=== PATIENT | female | born 1995 | race Caucasian/White ===

== ENCOUNTER 2018-05-05 17:16 | Emergency (ER) | payer OTHER ==
--- NOTE | 2018-05-05 17:52 | ERPHSYRPT ---
- History of Present Illness Time Seen by Provider: 05/05/18 17:39 Source: patient Exam Limitations: no limitations Patient Subjective Stated Complaint: PT HERE FOR SYNCOPAL EPISODE, TODAY AT WORK ,, SHE STATES SHE ASLO VOMITED A COUPLE TIMES TODAY. NO OTHER SYPTOMS Triage Nursing Assessment: PT ALERT, BUT SLEEPY. RESP EASY, SKIN W/D/P, BS WAS 93 Physician History: This is a 22-year-old white female she arrives with complaint of syncopal episode just prior to work. Patient also stated that she had vomited several times earlier today also one time after syncopal episode. Patient states she is nauseous. Past medical history includes diabetes past surgical history is negative Last menstrual period 5 days ago Social history positive for tobacco use patient denies alcohol or illicit drug use. . Timing/Duration: today (just prior to arrival) Severity: moderate Modifying Factors: Improves With: other (patient was closing window) Associated Symptoms: nausea, vomiting, syncope, No abdominal pain, No shortness of breath, No heartburn, No diaphoresis, No cough, No chills, No chest pain, No fever, No headaches, No loss of appetite, No malaise, No rash, No seizure, No weakness Allergies/Adverse Reactions: No Known Drug Allergies Allergy (Verified 09/09/16 09:31) Hx Tetanus, Diphtheria Vaccination/Date Given: No Hx Influenza Vaccination/Date Given: No Hx Pneumococcal Vaccination/Date Given: No Immunizations Up to Date: Yes - Review of Systems Constitutional: No Fever, No Chills Eyes: No Symptoms Ears, Nose, & Throat: No Symptoms, Ear Pain Respiratory: No Cough, No Dyspnea Cardiac: Syncope, No Chest Pain, No Edema Abdominal/Gastrointestinal: Nausea, Vomiting, No Abdominal Pain, No Diarrhea, No Constipation, No Hematemesis, No Hematochezia, No Melena, No Dysphagia, No Appetite Changes Genitourinary Symptoms: No Dysuria Musculoskeletal: No Symptoms Skin: No Rash Neurological: No Dizziness, No Focal Weakness, No Sensory Changes Psychological: No Symptoms Endocrine: No Symptoms All Other Systems: Reviewed and Negative - Past Medical History Pertinent Past Medical History: Yes Endocrine Medical History: Diabetes Type II - Past Surgical History Past Surgical History: No - Social History Smoking Status: Current every day smoker How long have you smoked: 2 Exposure to second hand smoke: Yes Drug Use: none Patient Lives Alone: No - Female History Hx Last Menstrual Period: 5 DAYS AGO Hx Now: No - Nursing Vital Signs Nursing Vital Signs: Initial Vital Signs Pulse Rate 70 05/05/18 18:22 Respiratory Rate 14 05/05/18 18:22 Blood Pressure 116/67 05/05/18 18:22 O2 Sat by Pulse Oximetry 98 05/05/18 18:22 Pain Scale Pain Intensity 0 - Physical Exam General Appearance: mild distress Eye Exam: PERRL/EOMI, eyes nml inspection Ears, Nose, Throat Exam: normal ENT inspection, TMs normal, pharynx normal, moist mucous membranes Neck Exam: normal inspection Respiratory Exam: normal breath sounds, lungs clear, No respiratory distress Cardiovascular Exam: regular rate/rhythm, normal heart sounds, normal peripheral pulses Gastrointestinal/Abdomen Exam: soft, normal bowel sounds, No tenderness, No mass Back Exam: normal inspection, normal range of motion, No CVA tenderness, No vertebral tenderness Extremity Exam: normal inspection, normal range of motion, pelvis stable Neurologic Exam: alert, oriented x 3, cooperative, 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, normal mood/affect, nml cerebellar function, nml station & gait, sensation nml, No motor deficits Skin Exam: normal color, warm, dry, No rash Lymphatic Exam: No adenopathy SpO2 Interpretation: normal Ordered Tests: Active Orders 24 hr Category Date Time Status Accucheck STAT Care 05/05/18 17:46 Active EKG-ER Only STAT Care 05/05/18 17:46 Active IV Insertion STAT Care 05/05/18 17:46 Active Orthostatic Vital Signs STAT Care 05/05/18 19:24 Active CBC W DIFF Stat Lab 05/05/18 17:55 Completed CMP Stat Lab 05/05/18 17:55 Completed HCG QUALITATIVE,SERUM Stat Lab 05/05/18 17:55 Completed UA W/ MICROSCOPIC Stat Lab 05/05/18 19:37 Completed Medication Summary Discontinued Medications Generic Name Dose Route Start Last Admin Trade Name Freq PRN Reason Stop Dose Admin Sodium Chloride 1,000 mls @ 999 mls/hr 05/05/18 17:46 05/05/18 19:45 Sodium Chloride 0.9% 1000 Ml IV 05/05/18 18:46 Infused .Q1H1M STA Infusion Sodium Chloride Confirm 05/05/18 18:35 Sodium Chloride 0.9% 1000 Ml Administered 05/05/18 18:36 Dose 1,000 mls @ ud .ROUTE .STK-MED ONE Ondansetron HCl 4 mg 05/05/18 17:48 05/05/18 18:36 Zofran 4 Mg/2 Ml Vial IV 05/05/18 17:49 4 mg STAT ONE Administration Ondansetron HCl Confirm 05/05/18 18:34 Zofran 4 Mg/2 Ml Vial Administered 05/05/18 18:35 Dose 4 mg .ROUTE .STK-MED ONE Lab/Rad Data: Laboratory Result Diagrams 05/05/18 17:55 05/05/18 17:55 Laboratory Results 05/05/18 05/05/18 05/05/18 Range/Units 19:37 17:55 17:55 WBC (4.0-10.5) K/mm3 RBC (4.1-5.4) M/mm3 Hgb (12.0-16.0) gm/dl Hct (35-47) % MCV (78-100) fl MCH (26-32) pg MCHC (32-36) g/dl RDW (11.5-14.0) % Plt Count (150-450) K/mm3 MPV (6-9.5) fl Gran % (36.0-66.0) % Eos # (Auto) (0-0.5) Absolute Lymphs (auto) (1.0-4.6) Absolute Monos (auto) (0.0-1.3) Lymphocytes % (24.0-44.0) % Monocytes % (0.0-12.0) % Eosinophils % (0.00-5.0) % Basophils % (0.0-0.4) % Absolute Granulocytes (1.4-6.9) Basophils # (0-0.4) Sodium 143 (137-145) mmol/L Potassium 4.2 (3.5-5.1) mmol/L Chloride 106 (98-107) mmol/L Carbon Dioxide 25 (22-30) mmol/L Anion Gap 15.8 H (5-15) MEQ/L BUN 13 (7-17) mg/dL Creatinine 0.83 (0.52-1.04) mg/dL Estimated GFR > 60.0 ML/MIN Glucose 88 (74-106) mg/dL Calcium 9.8 (8.4-10.2) mg/dL Total Bilirubin 0.20 (0.2-1.3) mg/dL AST 18 (14-36) U/L ALT 21 (0-35) U/L Alkaline Phosphatase 118 (38-126) U/L Serum Total Protein 8.0 (6.3-8.2) g/dL Albumin 4.9 (3.5-5.0) g/dL Serum , Qual NEGATIVE (Negative) Ur Collection Type VOID Urine Color YELLOW (YELLOW) Urine Appearance HAZY (CLEAR) Urine pH 5.0 (5-6) Ur Specific [place] 1.025 (1.005-1.025) Urine Protein NEGATIVE (Negative) Urine Ketones NEGATIVE (NEGATIVE) Urine Blood 50 (0-5) Hermann/ul Urine Nitrite NEGATIVE (NEGATIVE) Urine Bilirubin NEGATIVE (NEGATIVE) Urine Urobilinogen NORMAL (0-1) mg/dL Ur Leukocyte Esterase NEGATIVE (NEGATIVE) Urine Microscopic RBC 5-10 (0-2) /HPF Ur Epithelial Cells FEW (FEW) /HPF Urine Bacteria FEW (NEGATIVE) /HPF Urine Culture Reflexed NO (NO) Urine Glucose NEGATIVE (NEGATIVE) mg/dL Specimen Received 05/05 201505/05/18 Range/Units 17:55 WBC 14.5 H (4.0-10.5) K/mm3 RBC 5.21 (4.1-5.4) M/mm3 Hgb 15.8 (12.0-16.0) gm/dl Hct 46.8 (35-47) % MCV 89.8 (78-100) fl MCH 30.3 (26-32) pg MCHC 33.8 (32-36) g/dl RDW 13.7 (11.5-14.0) % Plt Count 358 (150-450) K/mm3 MPV 10.7 H (6-9.5) fl Gran % 66.9 H (36.0-66.0) % Eos # (Auto) 0.39 (0-0.5) Absolute Lymphs (auto) 3.28 (1.0-4.6) Absolute Monos (auto) 1.05 (0.0-1.3) Lymphocytes % 22.7 L (24.0-44.0) % Monocytes % 7.3 (0.0-12.0) % Eosinophils % 2.7 (0.00-5.0) % Basophils % 0.4 (0.0-0.4) % Absolute Granulocytes 9.69 H (1.4-6.9) Basophils # 0.06 (0-0.4) Sodium (137-145) mmol/L Potassium (3.5-5.1) mmol/L Chloride (98-107) mmol/L Carbon Dioxide (22-30) mmol/L Anion Gap (5-15) MEQ/L BUN (7-17) mg/dL Creatinine (0.52-1.04) mg/dL Estimated GFR ML/MIN Glucose (74-106) mg/dL Calcium (8.4-10.2) mg/dL Total Bilirubin (0.2-1.3) mg/dL AST (14-36) U/L ALT (0-35) U/L Alkaline Phosphatase (38-126) U/L Serum Total Protein (6.3-8.2) g/dL Albumin (3.5-5.0) g/dL Serum , Qual (Negative) Ur Collection Type Urine Color (YELLOW) Urine Appearance (CLEAR) Urine pH (5-6) Ur Specific [place] (1.005-1.025) Urine Protein (Negative) Urine Ketones (NEGATIVE) Urine Blood (0-5) Hermann/ul Urine Nitrite (NEGATIVE) Urine Bilirubin (NEGATIVE) Urine Urobilinogen (0-1) mg/dL Ur Leukocyte Esterase (NEGATIVE) Urine Microscopic RBC (0-2) /HPF Ur Epithelial Cells (FEW) /HPF Urine Bacteria (NEGATIVE) /HPF Urine Culture Reflexed (NO) Urine Glucose (NEGATIVE) mg/dL Specimen Received - Progress Progress: improved Progress Note: 05/05/18 20:42 22-year-old white female arrives with complaint of syncopal episode at work she states she has vomited several times today. Patient is feeling markedly improved after normal saline 1 L patient was EKG normal sinus rhythm [address] or T wave changes normal EKG. Patient's CBC with mild elevated wbc. otherwise normal. hCG chemistry are normal urinalysis essentially normal. Will discharge patient 05/05/18 20:52 - Departure Time of Disposition: 20:43 Departure Disposition: Home Clinical Impression: Vasovagal syncope Vomiting Qualifiers: Vomiting type: unspecified Vomiting Intractability: non-intractable Nausea presence: with nausea Qualified Code(s): R11.2 - Nausea with vomiting, unspecified Condition: Fair Critical Care Time: No Referrals: MALI RESTREPO [Primary Care Provider] - Instructions: Syncope (Fainting) (DC) Additional Instructions: Return home. Plenty of fluids. Zofran 4 mg orally every 6 hours as needed for nausea and vomiting Follow-up with your family doctor. Return for acute distress or for severe symptoms. Prescriptions: Ondansetron ODT 4 MG [Zofran Odt 4 mg] 4 mg PO Q6H PRN PRN #10 tab.rapdis PRN Reason: nausea or vomiting
[2018-05-05 18:03] LABS: BASOPHIL % 0.4 % (0.0-0.4); Basophil (Absolute #) 0.06 (0-0.4); Eosinophil % 2.7 % (0.00-5.0); Eosinophil (Absolute #) 0.39 (0-0.5); Granulocyte Absolute (ANC) 9.69 (1.4-6.9); Granulocytes % 66.9 % (36.0-66.0); Hematocrit 46.8 % (35-47); Hemoglobin 15.8 gm/dl (12.0-16.0); Lymphocyte (Absolute #) 3.28 (1.0-4.6); Lymphocytes % 22.7 % (24.0-44.0); Mean Cell Volume 89.8 fl (78-100); Mean Corpuscular Hemoglobin 30.3 pg (26-32); Mean Corpuscular Hgb Concent. 33.8 g/dl (32-36); Mean Platelet Volume 10.7 fl (6-9.5); Monocyte (Absolute #) 1.05 (0.0-1.3); Monocytes % 7.3 % (0.0-12.0); Platelet Count 358 K/mm3 (150-450); Red Blood Count 5.21 M/mm3 (4.1-5.4); Red Cell Distribution Width 13.7 % (11.5-14.0); White Blood Count 14.5 K/mm3 (4.0-10.5)
[2018-05-05 18:19] LABS: ALBUMIN 4.9 g/dL (3.5-5.0); ALKALINE PHOSPHATASE 118 U/L (38-126); ANION GAP 15.8 MEQ/L (5-15); BLOOD UREA NITROGEN 13 mg/dL (7-17); CHLORIDE 106 mmol/L (98-107); Calcium 9.8 mg/dL (8.4-10.2); Carbon Dioxide 25 mmol/L (22-30); Creatinine 1 0.83 mg/dL (0.52-1.04); Glucose 88 mg/dL (74-106); Potassium 4.2 mmol/L (3.5-5.1); SGOT/AST 18 U/L (14-36); SGPT/ALT 21 U/L (0-35); SODIUM 143 mmol/L (137-145)
[2018-05-05] MEDS ORDERED: Zofran 4 MG/2 ML VIAL ONE (18:34)
[2018-05-05] MEDS: Sodium Chloride 0.9% 1000 ML 1,000 ML IV STA (18:35)
[2018-05-05] MEDS ORDERED: Sodium Chloride 0.9% 1000 ML 1,000 ML ONE (18:35)
[2018-05-05] MEDS: Zofran 4 MG/2 ML VIAL IV ONE (18:36)
[2018-05-05 19:37] VITALS: BP 116/65
[2018-05-05 19:55] VITALS: PULSE 80; O2SAT 97
[2018-05-05 20:37] LABS: Appearance HAZY (CLEAR)
[2018-05-05 20:38] LABS: Bacteria FEW /HPF (NEGATIVE); Bilirubin NEGATIVE (NEGATIVE); Blood 50 Ery/ul (0-5); Epithelial Cells FEW /HPF (FEW); Glucose NEGATIVE (NEGATIVE); Ketones NEGATIVE (NEGATIVE); Leukocyte Esterase NEGATIVE (NEGATIVE); Nitrite NEGATIVE (NEGATIVE); Protein,Urine Dip NEGATIVE (Negative); Specific Gravity 1.025 (1.005-1.025); Urobilinogen NORMAL mg/dL (0-1)
== END 2018-05-05 21:21 | disposition home or self-care (01) ==
LOC: ED 17:16
DX: R55 Syncope and collapse (principal); E11.9 Type 2 diabetes mellitus without complications
CPT/HCPCS: 36000; 36415; 80053; 81000; 82962; 84703; 85025; 93005; 96360; 96374; 99284; J2405

== ENCOUNTER 2022-01-04 12:22 | Emergency (ER) | payer BC ==
--- NOTE | 2022-01-04 12:55 | ERPHSYRPT ---
- History of Present Illness Source: patient Exam Limitations: no limitations Patient Subjective Stated Complaint: Cramping in bottom area and pelvic area since yesterday and got worse throughout the night. Went to OB triage in [place] last PM but no ultrasound was done. Bleeding has increased today to bright red. Patient is 14 weeks . Stated she has a UTI based on UA from [place]. Triage Nursing Assessment: Patient to ED with complaints of cramping and vaginal bleeding. Physician History: 14wks preg wf w pelvic cramping/bleeding since last PM. Pt was told by Dr. Chatman to go to ER to get US, so pt went to [place] ER where she was diagnosed w a UTI but did not get an US. Pt. did not get her antibiotic filled yet. She denies N/V/dysuria/fever. Timing/Duration: yesterday Activites at Onset: none Quality: cramping Onset Location: suprapubic Pain Radiation: none Severity of Pain-Max: mild Severity of Pain-Current: mild Prior abdominal problems: none Modifying Factors: Improves With: nothing Associated Symptoms: abdominal pain, , No fever, No chills, No diaphoresis, No nausea, No vomiting, No dysuria, No nocturia, No polyuria, No urinary frequency, No loss of bladder control, No lower back pain, No lumps, No mass, No swelling, No syncope, No vaginal discharge, No vaginal fluid leakage Allergies/Adverse Reactions: No Known Drug Allergies Allergy (Verified 01/04/22 12:36) Hx Tetanus, Diphtheria Vaccination/Date Given: Yes Hx Influenza Vaccination/Date Given: No Hx Pneumococcal Vaccination/Date Given: No Travel Risk - International Travel Have you traveled outside of the country in past 3 weeks: No - Coronavirus Screening Are you exhibiting any of the following symptoms?: No Close contact with a COVID-19 positive Pt in past 14-21 Days: No - Vaccine Status Have you recieved a Covid-19 vaccination: No - Review of Systems Constitutional: No Symptoms Eyes: No Symptoms Ears, Nose, & Throat: No Symptoms Respiratory: No Symptoms Cardiac: No Symptoms Abdominal/Gastrointestinal: No Symptoms Genitourinary Symptoms: Vaginal Bleeding Musculoskeletal: No Symptoms Skin: No Symptoms Neurological: No Symptoms Psychological: No Symptoms Endocrine: No Symptoms Hematologic/Lymphatic: No Symptoms Immunological/Allergic: No Symptoms - Past Medical History Pertinent Past Medical History: Yes Endocrine Medical History: Diabetes Type II - Past Surgical History Past Surgical History: No - Social History Smoking Status: Never smoker How long have you smoked: 2 Exposure to second hand smoke: No Drug Use: none Patient Lives Alone: No Significant Family History: no pertinent family hx - Female History Hx Last Menstrual Period: 09/28/21 Hx Now: Yes Expected Date of Delivery: 07/04/22 Gestational Age: 14 weeks - Nursing Vital Signs Nursing Vital Signs: Initial Vital Signs Temperature 98.5 F 01/04/22 12:26 Pulse Rate 95 H 01/04/22 12:26 Respiratory Rate 20 01/04/22 12:26 Blood Pressure 131/80 01/04/22 12:26 O2 Sat by Pulse Oximetry 99 01/04/22 12:26 Pain Scale Pain Intensity 0 WNL - Physical Exam General Appearance: no apparent distress Eye Exam: PERRL/EOMI, eyes nml inspection Ears, Nose, Throat Exam: normal ENT inspection, TMs normal, pharynx normal, moist mucous membranes Neck Exam: normal inspection, non-tender, supple, full range of motion, No meningismus, No mass, No Brudzinski, No Kernig's, No carotid bruit Respiratory Exam: normal breath sounds, lungs clear, airway intact Cardiovascular Exam: regular rate/rhythm, normal heart sounds, normal peripheral pulses, No murmur Gastrointestinal/Abdomen Exam: soft, normal bowel sounds, No tenderness Pelvic Exam: not done Back Exam: normal inspection, normal range of motion, No CVA tenderness, No v ertebral tenderness Extremity Exam: normal inspection, normal range of motion Neurologic Exam: alert, oriented x 3, cooperative, concrete pavement installer II-XII nml as tested, normal mood/affect, nml cerebellar function, nml station & gait, sensation nml, No motor deficits, No sensory deficit Skin Exam: normal color, warm, dry Lymphatic Exam: No adenopathy SpO2 Interpretation: normal SpO2: 99 O2 Delivery: Room Air - Course Nursing assessment & vital signs reviewed: Yes - Radiology Ultrasound Exam OB Ultrasound: Other (Per tech IUP/HR157/14wks 2days) Ordered Tests: Active Orders 24 hr Category Date Time Status OB >14 WKS 1st GESTATION [US] Stat Exams 01/04/22 14:45 Taken CBC W DIFF Stat Lab 01/04/22 13:00 Completed CULTURE,URINE Stat Lab 01/04/22 12:56 Received HCG, Quantitative (Inhouse) Stat Lab 01/04/22 15:17 Completed UA W/RFX CULTURE Stat Lab 01/04/22 12:56 Completed Medication Summary Discontinued Medications Generic Name Dose Route Start Last Admin Trade Name Syed PRN Reason Stop Dose Admin Ceftriaxone Sodium Confirm 01/04/22 15:08 Ceftriaxone Sodium 1000 Mg Inj Vial Administered 01/04/22 15:09 Dose 1,000 mg .ROUTE .STK-MED ONE Ceftriaxone Sodium 1,000 mg 01/04/22 15:09 01/04/22 15:11 Ceftriaxone Sodium 1000 Mg Inj Vial IM 01/04/22 15:10 1,000 mg STAT ONE Administration Ceftriaxone Sodium/Dextrose 1 g in 50 mls @ 100 mls/hr 01/04/22 14:55 01/04/22 15:09 Rocephin 1 Gm-D5w 50 Ml Bag IV 01/04/22 15:24 Not Given STAT STA Ceftriaxone Sodium/Dextrose Confirm 01/04/22 14:57 Rocephin 1 Gm-D5w 50 Ml Bag Administered 01/04/22 14:58 Dose 1 g in 50 mls @ ud IV .STK-MED ONE Lidocaine HCl Confirm 01/04/22 15:08 Lidocaine Hcl 1% 20 Ml Mdv 20 Ml Ml Administered 01/04/22 15:09 Dose 3 ml .ROUTE .STK-MED ONE Lab/Rad Data: Laboratory Result Diagrams 01/04/22 13:00 Laboratory Results 01/04/22 01/04/22 01/04/22 Range/Units 15:17 13:00 13:00 WBC 23.5 H (4.0-10.5) K/mm3 RBC 4.30 (4.1-5.4) M/mm3 Hgb 12.8 (12.0-16.0) gm/dl Hct 39.2 (35-47) % MCV 91.2 (78-100) fl MCH 29.8 (26-32) pg MCHC 32.7 (32-36) g/dl RDW 13.3 (11.5-14.0) % Plt Count 285 (150-450) K/mm3 MPV 11.9 H (7.5-11.0) fl Gran % 86.3 H (36.0-66.0) % Eos # (Auto) 0.09 (0-0.5) Absolute Lymphs (auto) 1.70 (1.0-4.6) Absolute Monos (auto) 1.36 H (0.0-1.3) Lymphocytes % 7.2 L (24.0-44.0) % Monocytes % 5.8 (0.0-12.0) % Eosinophils % 0.4 (0.00-5.0) % Basophils % 0.3 (0.0-0.4) % Absolute Granulocytes 20.29 H (1.4-6.9) Basophils # 0.06 (0-0.4) Beta HCG, Quant 04363 mIU/ml Urinalys Dipstick Clnc Urine Color (YELLOW) Urine Appearance (CLEAR) Urine pH (5-6) Ur Specific [place] (1.005-1.025) POC Urine Protein Conf (Negative) Urine Ketones (NEGATIVE) Urine Nitrite (NEGATIVE) Urine Bilirubin (NEGATIVE) Urine Urobilinogen (0-1) mg/dL Urine Leukocytes (NEGATIVE) Urine WBC (Auto) (0-5) /HPF Urine RBC (Auto) (0-2) /HPF U Hyaline Cast (Auto) (0-2) /LPF U Epithel Cells (Auto) (FEW) /HPF Urine Bacteria (Auto) (NEGATIVE) /HPF Urine RBC (0-5) Hermann/ul Urine Mucus (Auto) (NEGATIVE) /HPF Ur Culture Indicated? Urine Glucose (NEGATIVE) mg/dL Slides for Path Review YES Rh Factor POSITIVE 01/04/22 Range/Units 12:56 WBC (4.0-10.5) K/mm3 RBC (4.1-5.4) M/mm3 Hgb (12.0-16.0) gm/dl Hct (35-47) % MCV (78-100) fl MCH (26-32) pg MCHC (32-36) g/dl RDW (11.5-14.0) % Plt Count (150-450) K/mm3 MPV (7.5-11.0) fl Gran % (36.0-66.0) % Eos # (Auto) (0-0.5) Absolute Lymphs (auto) (1.0-4.6) Absolute Monos (auto) (0.0-1.3) Lymphocytes % (24.0-44.0) % Monocytes % (0.0-12.0) % Eosinophils % (0.00-5.0) % Basophils % (0.0-0.4) % Absolute Granulocytes (1.4-6.9) Basophils # (0-0.4) Beta HCG, Quant mIU/ml Urinalys Dipstick Clnc MAIN LAB Urine Color YELLOW (YELLOW) Urine Appearance HAZY (CLEAR) Urine pH 6.0 (5-6) Ur Specific [place] >=1.030 (1.005-1.025) POC Urine Protein Conf NEGATIVE (Negative) Urine Ketones NEGATIVE (NEGATIVE) Urine Nitrite NEGATIVE (NEGATIVE) Urine Bilirubin NEGATIVE (NEGATIVE) Urine Urobilinogen 0.2 (0-1) mg/dL Urine Leukocytes TRACE (NEGATIVE) Urine WBC (Auto) 16-25 (0-5) /HPF Urine RBC (Auto) 3-5 (0-2) /HPF U Hyaline Cast (Auto) 0-2 (0-2) /LPF U Epithel Cells (Auto) RARE (FEW) /HPF Urine Bacteria (Auto) RARE (NEGATIVE) /HPF Urine RBC MODERATE (0-5) Hermann/ul Urine Mucus (Auto) MODERATE (NEGATIVE) /HPF Ur Culture Indicated? YES Urine Glucose NEGATIVE (NEGATIVE) mg/dL Slides for Path Review Rh Factor - Progress Progress: improved Progress Note: 01/04/22 14:58 1gm IM Rocephin 01/04/22 15:[address] Chatman, wants bed rest/Vaginal rest/Will call pt in AM to set up w high safety risk lead 01/04/22 18:02 Counseled pt/family regarding: lab results, diagnosis, need for follow-up, rad results - Departure Departure Disposition: Home Clinical Impression: First trimester bleeding, UTI (urinary tract infection) Condition: Stable Critical Care Time: No Referrals: MALI ISBELL [Primary Care Provider] - Follow up/PCP as directed Instructions: Bleeding With (DC), Urinary Tract Infections in Additional Instructions: Fluids Start Macrobid twice a day Follow up with your Ob in the morning Return to ER for increasing pain or soaking through greater than 4 pads completely in 1 hour Prescriptions: Nitrofurantoin Monohyd/M-Cryst [Macrobid 100 mg Capsule] 100 mg PO BID 5 Days #10
[2022-01-04 13:28] LABS: Absolute Neutrophil Ct (ANC) 20.29 (1.4-6.9); Basophil (Absolute #) 0.06 (0-0.4); Eosinophil % 0.4 % (0.00-5.0); Eosinophil (Absolute #) 0.09 (0-0.5); Hematocrit 39.2 % (35-47); Hemoglobin 12.8 gm/dl (12.0-16.0); Lymphocytes % 7.2 % (24.0-44.0); Mean Cell Volume 91.2 fl (78-100); Mean Corpuscular Hemoglobin 29.8 pg (26-32); Mean Corpuscular Hgb Concent. 32.7 g/dl (32-36); Mean Platelet Volume 11.9 fl (7.5-11.0); Monocyte (Absolute #) 1.36 (0.0-1.3); Monocytes % 5.8 % (0.0-12.0); Neutrophil % 86.3 % (36.0-66.0); Platelet Count 285 K/mm3 (150-450); Red Cell Distribution Width 13.3 % (11.5-14.0); White Blood Count 23.5 K/mm3 (4.0-10.5)
[2022-01-04 13:55] LABS: Bacteria RARE /HPF (NEGATIVE); Epithelial Cells RARE /HPF (FEW); Hyaline Casts 0-2 /LPF (0-2); Mucus MODERATE /HPF (NEGATIVE)
[2022-01-04 13:57] LABS: Appearance HAZY (CLEAR); Bilirubin NEGATIVE (NEGATIVE); Dipstick done @ ? MAIN LAB; Glucose NEGATIVE (NEGATIVE); Ketones NEGATIVE (NEGATIVE); Nitrite NEGATIVE (NEGATIVE); Protein,Urine Dip NEGATIVE (Negative); RBC MODERATE Ery/ul (0-5); Specific Gravity >=1.030 (1.005-1.025); Urobilinogen 0.2 mg/dL (0-1)
[2022-01-04 13:58] LABS: Urine Cultured Indicated? YES
[2022-01-04] MEDS ORDERED: ROCEPHIN 1 Gm-D5w 50 ml Bag** 0 G/0 ML IVPB IV ONE (14:57)
[2022-01-04] MEDS ORDERED: XYLOCAINE 1% HCL 20 ML MDV ONE (15:08)
[2022-01-04] MEDS ORDERED: Rocephin 1000 MG INJ ONE (15:08)
[2022-01-04] MEDS: ROCEPHIN 1 Gm-D5w 50 ml Bag** 1 G/50 ML IVPB IV STA (15:09)
[2022-01-04] MEDS: Rocephin 1000 MG INJ IM ONE (15:11)
[2022-01-04 15:16] LABS: Slide Review 1 YES
[2022-01-04 15:20] VITALS: BP 94/64; PULSE 81
[2022-01-04 15:29] VITALS: O2SAT 99
--- NOTE | 2022-01-04 21:17 | XRAY ---
Indication: Bleeding and cramping. Two-dimensional OB ultrasound performed. Comparison: November 13, 2021. Again single viable intrauterine with mean composite gestational age 14 weeks 2 days. heart rate 171 BPM. Four-quadrant ARLEEN is 8.2 cm. Posterior placenta without retroplacental fluid. Cervix is closed with tiny sliver of fluid in the endocervix. Cervical length is 2.7 cm. Impression: Again single viable intrauterine measuring 14 weeks 2 days. Normal progression of . Tiny nonspecific fluid in the endocervix. No acute findings. Comment: Preliminary report was given.
== END 2022-01-04 15:35 | disposition home or self-care (01) ==
LOC: ED 12:22
DX: O20.9 Hemorrhage in early pregnancy, unspecified (principal); O23.42 Unspecified infection of urinary tract in pregnancy, second trimester; N39.0 Urinary tract infection, site not specified; Z3A.14 14 weeks gestation of pregnancy; R10.2 Pelvic and perineal pain; O24.112 Pre-existing type 2 diabetes mellitus, in pregnancy, second trimester; E11.9 Type 2 diabetes mellitus without complications
CPT/HCPCS: 36415; 76805; 81015; 84702; 85025; 86901; 87086; 96372; 99284; J0696

== ENCOUNTER 2025-07-14 17:52 | Emergency (ER) | payer BC ==
--- NOTE | 2025-07-14 18:11 | ERPHSYRPT ---
- History of Present Illness Time Seen by Provider: 07/14/25 18:08 Source: patient Exam Limitations: no limitations Physician History: 29-year-old female G2, reports she did IVF she reports this is her second but prior ended in miscarriage she is very anxious about this she reports she has had 1 ultrasound that showed a gestational sac but too early to show any heartbeat she is unsure as to her blood type she denies any trauma she reports some abdominal cramping and bleeding she reports she is having some spotting she denies any chest pain or shortness of breath denies any rash denies any headache now in ED for further eval Timing/Duration: today Activites at Onset: none Quality: aching, cramping Onset Location: pelvic pain Pain Radiation: none Severity of Pain-Max: mild Severity of Pain-Current: mild Allergies/Adverse Reactions: No Known Drug Allergies Allergy (Verified 07/14/25 19:35) Hx Tetanus, Diphtheria Vaccination/Date Given: Yes Hx Influenza Vaccination/Date Given: No Hx Pneumococcal Vaccination/Date Given: No - Review of Systems Constitutional: No Fever, No Chills Eyes: No Symptoms Ears, Nose, & Throat: No Symptoms Respiratory: No Cough, No Dyspnea Cardiac: No Chest Pain, No Edema, No Syncope Abdominal/Gastrointestinal: No Abdominal Pain, No Nausea, No Vomiting, No Diarrhea Genitourinary Symptoms: Vaginal Bleeding, No Dysuria Musculoskeletal: No Back Pain, No Neck Pain Skin: No Rash Neurological: No Dizziness, No Focal Weakness, No Sensory Changes Psychological: No Symptoms Endocrine: No Symptoms All Other Systems: Reviewed and Negative - Past Medical History Pertinent Past Medical History: Yes Endocrine Medical History: Diabetes Type II - Past Surgical History Past Surgical History: No Significant Family History: no pertinent family hx - Female History Hx Now: Yes - Social History Smoking Status: Never smoker How long have you smoked: 2 Exposure to second hand smoke: No Drug Use: none Patient Lives Alone: No - Nursing Vital Signs Nursing Vital Signs: Initial Vital Signs Pulse Rate 78 07/14/25 18:11 Respiratory Rate 18 07/14/25 18:11 Blood Pressure 157/96 07/14/25 18:11 O2 Sat by Pulse Oximetry 98 07/14/25 18:11 Pain Scale Pain Intensity 0 - Physical Exam General Appearance: no apparent distress, alert Eye Exam: PERRL/EOMI, eyes nml inspection Ears, Nose, Throat Exam: normal ENT inspection, TMs normal, pharynx normal, moist mucous membranes Neck Exam: normal inspection, non-tender, supple, full range of motion Respiratory Exam: normal breath sounds, lungs clear, No respiratory distress Cardiovascular Exam: regular rate/rhythm, normal heart sounds, normal peripheral pulses Gastrointestinal/Abdomen Exam: soft, No tenderness, No mass Back Exam: normal inspection, normal range of motion, No CVA tenderness, No vertebral tenderness Extremity Exam: normal inspection, normal range of motion, pelvis stable Neurologic Exam: alert, oriented x 3, cooperative, production control manager II-XII nml as tested, normal mood/affect, sensation nml, No motor deficits Skin Exam: normal color, warm, dry Lymphatic Exam: No adenopathy - Course Nursing assessment & vital signs reviewed: Yes Ordered Tests: Active Orders 24 hr Category Date Time Status Gown/Disrobe Pt STAT Care 07/14/25 18:08 Completed IV Insertion STAT Care 07/14/25 18:08 Completed OB FOLLOW UP PER FETUS [US] Stat Exams 07/14/25 18:09 Completed CBC W DIFF Stat Lab 07/14/25 18:26 Completed CMP Stat Lab 07/14/25 18:26 Completed CULTURE,URINE Stat Lab 07/14/25 18:23 Received HCG, Quantitative (Inhouse) Stat Lab 07/14/25 18:26 Completed UA W/RFX UR CULTURE Stat Lab 07/14/25 18:23 Completed Medication Summary Discontinued Medications Generic Name Dose Route Start Last Admin Trade Name Syed PRN Reason Stop Dose Admin Sodium Chloride 1,000 mls @ 999 mls/hr 07/14/25 18:08 07/14/25 19:29 Sodium Chloride 0.9% 1000 Ml IV 07/14/25 19:08 Infused .Q1H1M STA Infusion Sodium Chloride Confirm 07/14/25 18:24 Sodium Chloride 0.9% 1000 Ml Administered 07/14/25 18:25 Dose 1,000 mls @ ud .ROUTE .STK-MED ONE Ceftriaxone Sodium 1 gm in 100 mls @ 200 mls/hr 07/14/25 18:55 07/14/25 19:38 Rocephin 1 Gm / 100 Ml Nacl IV 07/14/25 19:24 Infused STAT ONE Infusion Ceftriaxone Sodium Confirm 07/14/25 19:06 Rocephin 1 Gm / 100 Ml Nacl Administered 07/14/25 19:07 Dose 1 gm in 100 mls @ ud IV .STK-MED ONE Lab/Rad Data: Laboratory Result Diagrams 07/14/25 18:26 07/14/25 18:26 Laboratory Results 07/14/25 07/14/25 07/14/25 Range/Units 18:26 18:26 18:26 WBC (3.98-10.04) x10^3/uL RBC (3.93-5.22) x10^6/uL Hgb (11.2-15.7) g/dL Hct (34.1-44.9) % MCV (79.4-94.8) fL MCH (25.6-32.2) pg MCHC (32.2-35.5) g/dL RDW (11.7-14.4) % Plt Count (182-369) x10^3/uL MPV (9.4-12.3) fL Gran % (34.0-71.1) % Immature Gran % (Auto) (0.001-0.429) % Nucleat RBC Rel Count (0.00-0.2) % Eos # (Auto) (0.04-0.36) x10^3/uL Immature Gran # (Auto) (0.001-0.031) x10^3u/L Absolute Lymphs (auto) (1.18-3.74) x10^3/uL Absolute Monos (auto) (0.24-0.86) x10^3/uL Absolute Nucleated RBC (0.00-0.012) x10^3u/L Lymphocytes % (19.3-51.7) % Monocytes % (4.7-12.5) % Eosinophils % (0.7-5.8) % Basophils % (0.1-1.2) % Absolute Granulocytes (1.56-6.13) x10^3/uL Basophils # (0.01-0.08) x10^3/uL Sodium 136 (135-145) mmol/L Potassium 4.3 (3.5-5.1) mmol/L Chloride 110 H (98-107) mmol/L Carbon Dioxide 20 L (22-30) mmol/L Anion Gap 10.0 (5-15) MEQ/L BUN 11 (7-17) mg/dL Creatinine 0.69 (0.52-1.04) mg/dL Estimated GFR 119.7 ML/MIN Glucose 94 (74-106) mg/dL Calcium 8.2 L (8.4-10.2) mg/dL Total Bilirubin 0.10 L (0.2-1.3) mg/dL AST 21 (14-36) U/L ALT 21 (0-35) U/L Alkaline Phosphatase 89 (38-126) U/L Serum Total Protein 6.7 (6.3-8.2) g/dL Albumin 3.8 (3.5-5.0) g/dL Beta HCG, Quant 83530 mIU/ml Urine Color (Yellow) Urine Appearance (Clear) Urine pH (4.6-8.0) Ur Specific [place] (1.005-1.030) Urine Protein (Negative) Urine Glucose (UA) (Negative) mg/dL Urine Ketones (Negative) Urine Blood (Negative) Urine Nitrite (Negative) Urine Bilirubin (Negative) Urine Urobilinogen (0.2) mg/dL Ur Leukocyte Esterase (Negative) U Hyaline Cast (Auto) (0-2) /LPF Urine Microscopic RBC (0-5) /HPF Urine Microscopic WBC (0-5) /HPF Ur Epithelial Cells (None Seen) /HPF Urine Bacteria (None Seen) /HPF Urine Culture Reflexed (NO) ABO Group O Rh Factor POSITIVE Antibody Screen NEGATIVE (NEGATIVE) 07/14/25 07/14/25 Range/Units 18:26 18:23 WBC 14.5 H (3.98-10.04) x10^3/uL RBC 4.62 (3.93-5.22) x10^6/uL Hgb 13.4 (11.2-15.7) g/dL Hct 42.0 (34.1-44.9) % MCV 90.9 (79.4-94.8) fL MCH 29.0 (25.6-32.2) pg MCHC 31.9 L (32.2-35.5) g/dL RDW 13.2 (11.7-14.4) % Plt Count 369 (182-369) x10^3/uL MPV 10.7 (9.4-12.3) fL Gran % 68.2 (34.0-71.1) % Immature Gran % (Auto) 0.3 (0.001-0.429) % Nucleat RBC Rel Count 0.0 (0.00-0.2) % Eos # (Auto) 0.35 (0.04-0.36) x10^3/uL Immature Gran # (Auto) 0.05 H (0.001-0.031) x10^3u/L Absolute Lymphs (auto) 3.20 (1.18-3.74) x10^3/uL Absolute Monos (auto) 0.92 H (0.24-0.86) x10^3/uL Absolute Nucleated RBC 0.00 (0.00-0.012) x10^3u/L Lymphocytes % 22.0 (19.3-51.7) % Monocytes % 6.3 (4.7-12.5) % Eosinophils % 2.4 (0.7-5.8) % Basophils % 0.8 (0.1-1.2) % Absolute Granulocytes 9.89 H (1.56-6.13) x10^3/uL Basophils # 0.11 H (0.01-0.08) x10^3/uL Sodium (135-145) mmol/L Potassium (3.5-5.1) mmol/L Chloride (98-107) mmol/L Carbon Dioxide (22-30) mmol/L Anion Gap (5-15) MEQ/L BUN (7-17) mg/dL Creatinine (0.52-1.04) mg/dL Estimated GFR ML/MIN Glucose (74-106) mg/dL Calcium (8.4-10.2) mg/dL Total Bilirubin (0.2-1.3) mg/dL AST (14-36) U/L ALT (0-35) U/L Alkaline Phosphatase (38-126) U/L Serum Total Protein (6.3-8.2) g/dL Albumin (3.5-5.0) g/dL Beta HCG, Quant mIU/ml Urine Color Yellow (Yellow) Urine Appearance Cloudy A (Clear) Urine pH 6.5 (4.6-8.0) Ur Specific [place] 1.025 (1.005-1.030) Urine Protein Trace A (Negative) Urine Glucose (UA) Negative (Negative) mg/dL Urine Ketones Trace A (Negative) Urine Blood Small A (Negative) Urine Nitrite Negative (Negative) Urine Bilirubin Negative (Negative) Urine Urobilinogen 1.0 A (0.2) mg/dL Ur Leukocyte Esterase Trace A (Negative) U Hyaline Cast (Auto) 3-5 A (0-2) /LPF Urine Microscopic RBC 11-20 A (0-5) /HPF Urine Microscopic WBC 6-10 A (0-5) /HPF Ur Epithelial Cells Few (None Seen) /HPF Urine Bacteria Moderate A (None Seen) /HPF Urine Culture Reflexed YES (NO) ABO Group Rh Factor Antibody Screen (NEGATIVE) - Progress Progress Note: 07/14/25 18:11 Pending ultrasound and blood work patient to receive IV fluids 07/14/25 18:31 gestational sac seen with fundus and yolk sac no pole seen at this time there was an ultrasound performed on 07/1107/14/25 18:31 From previous visits patient's Rh was positive 07/14/25 19:01 Case presents signed out to Dr. Nelson patient does have UTI (started on Rocephin) awaiting labs, imaging and discharge planning. 07/14/25 19:02 07/14/25 19:14 Ultrasound shows single IUP with cardiac activity seen both ovaries within normal limits crown-rump length is 0.33 cm about 6 weeks heart rate moderate 104 bpm movement noted patient be discharged at this time with antibiotics 07/14/25 19:36 - Departure Departure Disposition: Home Clinical Impression: First trimester bleeding UTI in Qualifiers: Trimester: first trimester Qualified Code(s): O23.41 - Unspecified infection of urinary tract in , first trimester Condition: Stable Critical Care Time: No Referrals: DOCTOR,NO FAMILY [Primary Care Provider, UNKNOWN] - Follow up/PCP as directed BINA MAHONEY DO [ACTIVE STAFF, OBSTETRICS-GYNECOLOGY] - Follow up/PCP as directed Instructions: Threatened Miscarriage (DC), symptoms, Bleeding in Early (DC), Urinary tract infections in Prescriptions: Cephalexin Mh 500 mg [Keflex 500 mg] 500 mg PO TID 7 Days #21 cap
[2025-07-14 18:36] LABS: BASOPHIL % 0.8 % (0.1-1.2); Basophil (Absolute #) 0.11 x10^3/uL (0.01-0.08); Eosinophil (Absolute #) 0.35 x10^3/uL (0.04-0.36); Hematocrit 42.0 % (34.1-44.9); Hemoglobin 13.4 g/dL (11.2-15.7); IMMATURE GRAN # 0.05 x10^3u/L (0.001-0.031); IMMATURE GRAN % 0.3 % (0.001-0.429); Lymphocyte (Absolute #) 3.20 x10^3/uL (1.18-3.74); Mean Corpuscular Hemoglobin 29.0 pg (25.6-32.2); Mean Corpuscular Hgb Concent. 31.9 g/dL (32.2-35.5); Monocyte (Absolute #) 0.92 x10^3/uL (0.24-0.86); NUCLEATED RBC # 0.00 x10^3u/L (0.00-0.012); NUCLEATED RBC % 0.0 % (0.00-0.2); Platelet Count 369 x10^3/uL (182-369); Red Blood Count 4.62 x10^6/uL (3.93-5.22); White Blood Count 14.5 x10^3/uL (3.98-10.04)
[2025-07-14 18:45] VITALS: RESP 18; TEMP 97.9; O2SAT 100
[2025-07-14 18:45] LABS: Glucose, Urine Negative (Negative); Protein,Urine Dip Trace (Negative)
[2025-07-14] MEDS ORDERED: ROCEPHIN 1 GM / 100 ML NaCl 1 GM/100 ML IVPB IV ONE (19:06)
[2025-07-14] MEDS: ROCEPHIN 1 GM / 100 ML NaCl 1 GM/100 ML IVPB IV ONE (19:08)
[2025-07-14 19:18] LABS: ABO TYPING O; RH TYPING POSITIVE
[2025-07-14 19:28] LABS: Calcium 8.2 mg/dL (8.4-10.2); Carbon Dioxide 20.0 mmol/L (22-30); Creatinine 1 0.69 mg/dL (0.52-1.04); EST GLOMERULAR FILTRATION RATE 119.7 ML/MIN; Glucose 94.0 mg/dL (74-106); Potassium 4.3 mmol/L (3.5-5.1); SGOT/AST 21.0 U/L (14-36); SGPT/ALT 21.0 U/L (0-35); Total Protein 6.7 g/dL (6.3-8.2)
[2025-07-14 19:29] VITALS: BP 131/80; PULSE 82
--- NOTE | 2025-07-14 20:10 | XRAY ---
Indication: Bleeding. Miscarriage. Two-dimensional transvaginal early OB ultrasound performed. Comparison: July 11, 2025 Again single intrauterine gestational sac with now single pole. Mean crown-rump length is 0.33 cm corresponding to 6 weeks 0 days. heart rate 104 bpm. No abnormal subchorionic fluid. Left and right ovaries again sonographically unremarkable. No suspicious adnexal mass or free fluid. Impression: Again single intrauterine with now single pole measuring 6 weeks 0 days. Expected date confinement March 09, 2026. Comment: Preliminary report was given.
== END 2025-07-14 19:50 | disposition home or self-care (01) ==
LOC: ED 17:52
DX: O20.9 Hemorrhage in early pregnancy, unspecified (principal); O23.41 Unspecified infection of urinary tract in pregnancy, first trimester; Z3A.01 Less than 8 weeks gestation of pregnancy; R10.9 Unspecified abdominal pain

== ENCOUNTER 2025-07-17 13:17 | Emergency (ER) | payer BC ==
[2025-07-17 13:38] VITALS: TEMP 97
[2025-07-17 13:54] LABS: BASOPHIL % 0.6 % (0.1-1.2); Basophil (Absolute #) 0.08 x10^3/uL (0.01-0.08); Eosinophil (Absolute #) 0.20 x10^3/uL (0.04-0.36); Hematocrit 42.1 % (34.1-44.9); Hemoglobin 13.7 g/dL (11.2-15.7); IMMATURE GRAN # 0.05 x10^3u/L (0.001-0.031); IMMATURE GRAN % 0.4 % (0.001-0.429); Lymphocyte (Absolute #) 2.44 x10^3/uL (1.18-3.74); Mean Corpuscular Hemoglobin 29.1 pg (25.6-32.2); Mean Corpuscular Hgb Concent. 32.5 g/dL (32.2-35.5); Monocyte (Absolute #) 0.73 x10^3/uL (0.24-0.86); NUCLEATED RBC # 0.00 x10^3u/L (0.00-0.012); NUCLEATED RBC % 0.0 % (0.00-0.2); Platelet Count 425 x10^3/uL (182-369); Red Blood Count 4.70 x10^6/uL (3.93-5.22); White Blood Count 13.5 x10^3/uL (3.98-10.04)
[2025-07-17 14:04] LABS: Calcium 9.1 mg/dL (8.4-10.2); Carbon Dioxide 18.0 mmol/L (22-30); Creatinine 1 0.65 mg/dL (0.52-1.04); EST GLOMERULAR FILTRATION RATE 121.4 ML/MIN; Glucose 144.0 mg/dL (74-106); Potassium 4.4 mmol/L (3.5-5.1); SGOT/AST 27.0 U/L (14-36); SGPT/ALT 22.0 U/L (0-35); Total Protein 7.7 g/dL (6.3-8.2)
--- NOTE | 2025-07-17 14:12 | ERPHSYRPT ---
- History of Present Illness Time Seen by Provider: 07/17/25 14:13 Source: patient Exam Limitations: no limitations Patient Subjective Stated Complaint: patient states that on wednesday she noticed pink tinged vaginal bleeding, patient states that she woke up this morning and now the vaginal bleeding is bright red, patient states she has not filled a pad, she notices blood when she wipes 6 weeks and 3 days Triage Nursing Assessment: patient presents to ed via private vehicle, patient able to ambulate into ed without complication, skin pwd, patient alert and oriented x 4, patient has complaints of intermittent lower abdominal cramping, patient states she has bright red scant vaginal bleeding noted when patient wipes, patient currently has UTI and is on anbitotics at this time Physician History: Patient is a 29-year-old female history of a D&C currently 6 weeks 3 days presents to our ED for evaluation of vaginal spotting. Patient states she observed pink-tinged vaginal bleeding when she wiped. Patient states she awoke this morning with bright red blood. The bleeding was small in volume. She did not soak through a pad. Vaginal bleeding associated with intermittent low intensity pelvic cramping. No other symptomology. No nausea no vomiting no diarrhea no rash. Patient denies urinary tract symptomology. Patient advised that she is currently on Keflex for a urinary tract infection. Patient otherwise feels well. She voices no other complaints or concerns at this time. Portions of this note were created with voice recognition technology. There may be grammatical, spelling, punctuation or sound alike errors Timing/Duration: today Severity: moderate Associated Symptoms: denies symptoms Allergies/Adverse Reactions: No Known Drug Allergies Allergy (Verified 07/17/25 13:28) Hx Tetanus, Diphtheria Vaccination/Date Given: No Hx Influenza Vaccination/Date Given: No Hx Pneumococcal Vaccination/Date Given: No Travel Risk - International Travel Have you traveled outside of the country in past 3 weeks: No - Emerging Infectious Disease Are you exhibiting symptoms associated with any current EIDs: No - Review of Systems All Other Systems: Reviewed and Negative - Past Medical History Pertinent Past Medical History: Yes - Past Surgical History Past Surgical History: No Female Surgical History: Dilation & Curettage Other Surgical History: D and C 2021 Significant Family History: no pertinent family hx - Female History Hx Last Menstrual Period: May 2025 Hx Now: Yes Gestational Age: 6 weeks 3 - Social History Smoking Status: Never smoker Exposure to second hand smoke: No Drug Use: none - Social Determinants of Health Will the patient participate in the screening: Yes Do you worry about a steady place to live?: No Do you have any problems with any of the following?: No known problems In the past 12 months,have you had to go without utilities?: No Transportation Issues: No Has anyone in your support network made you feel unsafe?: No Have you or anyone in your house had to go w/o enough food: No - Nursing Vital Signs Nursing Vital Signs: Initial Vital Signs Temperature 97 F 07/17/25 13:18 Pulse Rate 83 07/17/25 13:18 Respiratory Rate 18 07/17/25 13:18 Blood Pressure 141/93 07/17/25 13:18 O2 Sat by Pulse Oximetry 100 07/17/25 13:18 Pain Scale Pain Intensity 97 - Physical Exam General Appearance: no apparent distress, alert Eye Exam: PERRL/EOMI, eyes nml inspection Ears, Nose, Throat Exam: normal ENT inspection, moist mucous membranes, dry mucous membranes Neck Exam: normal inspection, full range of motion Respiratory Exam: normal breath sounds, lungs clear, No respiratory distress Cardiovascular Exam: regular rate/rhythm, normal heart sounds, normal peripheral pulses Gastrointestinal/Abdomen Exam: soft, normal bowel sounds, No tenderness, No mass Pelvic Exam: normal external exam, No adnexal tenderness, No adnexal mass, No mass, No cervical motion tenderness, No vaginal bleeding (No active vaginal bleeding), No vaginal discharge Back Exam: normal inspection, normal range of motion, No CVA tenderness, No vertebral tenderness Extremity Exam: normal inspection, normal range of motion, pelvis stable Neurologic Exam: alert, oriented x 3, cooperative, normal mood/affect, sensation nml, No motor deficits Skin Exam: normal color, warm, dry, No rash Lymphatic Exam: No adenopathy SpO2 Interpretation: normal SpO2: 99 O2 Delivery: Room Air - Course Nursing assessment & vital signs reviewed: Yes - Radiology Ultrasound Exam OB Ultrasound: tele radiology report (Pelvic ultrasound reveals an IUP with heart tones in the 130s. No subchorionic hemorrhage. This is per the b2b outside sales representative. Formal read pending) Ordered Tests: Active Orders 24 hr Category Date Time Status IV Insertion STAT Care 07/17/25 13:35 Active OB FOLLOW UP PER FETUS [US] Stat Exams 07/17/25 13:36 Completed CBC W DIFF Stat Lab 07/17/25 13:51 Completed CMP Stat Lab 07/17/25 13:51 Completed HCG, Quantitative (Inhouse) Stat Lab 07/17/25 13:55 Completed UA W/RFX UR CULTURE Stat Lab 07/17/25 13:36 Completed Medication Summary Generic Name Dose Route Start Last Admin Trade Name Freq PRN Reason Stop Dose Admin Sodium Chloride 1,000 mls @ 100 mls/hr 07/17/25 13:45 07/17/25 13:51 Sodium Chloride 0.9% 1000 Ml IV 08/16/25 13:44 100 mls/hr .Q10H CHARLES Administration Lab/Rad Data: Laboratory Result Diagrams 07/17/25 13:51 07/17/25 13:51 Laboratory Results 07/17/25 07/17/25 07/17/25 Range/Units 14:37 14:37 13:55 WBC (3.98-10.04) x10^3/uL RBC (3.93-5.22) x10^6/uL Hgb (11.2-15.7) g/dL Hct (34.1-44.9) % MCV (79.4-94.8) fL MCH (25.6-32.2) pg MCHC (32.2-35.5) g/dL RDW (11.7-14.4) % Plt Count (182-369) x10^3/uL MPV (9.4-12.3) fL Gran % (34.0-71.1) % Immature Gran % (Auto) (0.001-0.429) % Nucleat RBC Rel Count (0.00-0.2) % Eos # (Auto) (0.04-0.36) x10^3/uL Immature Gran # (Auto) (0.001-0.031) x10^3u/L Absolute Lymphs (auto) (1.18-3.74) x10^3/uL Absolute Monos (auto) (0.24-0.86) x10^3/uL Absolute Nucleated RBC (0.00-0.012) x10^3u/L Lymphocytes % (19.3-51.7) % Monocytes % (4.7-12.5) % Eosinophils % (0.7-5.8) % Basophils % (0.1-1.2) % Absolute Granulocytes (1.56-6.13) x10^3/uL Basophils # (0.01-0.08) x10^3/uL Sodium (135-145) mmol/L Potassium (3.5-5.1) mmol/L Chloride (98-107) mmol/L Carbon Dioxide (22-30) mmol/L Anion Gap (5-15) MEQ/L BUN (7-17) mg/dL Creatinine (0.52-1.04) mg/dL Estimated GFR ML/MIN Glucose (74-106) mg/dL Calcium (8.4-10.2) mg/dL Total Bilirubin (0.2-1.3) mg/dL AST (14-36) U/L ALT (0-35) U/L Alkaline Phosphatase (38-126) U/L Serum Total Protein (6.3-8.2) g/dL Albumin (3.5-5.0) g/dL Beta HCG, Quant 49871 mIU/ml Urine Color (Yellow) Urine Appearance (Clear) Urine pH (4.6-8.0) Ur Specific Orient (1.005-1.030) Urine Protein (Negative) Urine Glucose (UA) (Negative) mg/dL Urine Ketones (Negative) Urine Blood (Negative) Urine Nitrite (Negative) Urine Bilirubin (Negative) Urine Urobilinogen (0.2) mg/dL Ur Leukocyte Esterase (Negative) U Hyaline Cast (Auto) (0-2) /LPF Urine Microscopic RBC (0-5) /HPF Urine Microscopic WBC (0-5) /HPF Ur Epithelial Cells (None Seen) /HPF Urine Bacteria (None Seen) /HPF Urine Culture Reflexed (NO) Vaginal Padmini Group NOT DETECTED (NEGATIVE) Padmini species NOT DETECTED (NEGATIVE) Chlamydia DNA Probe NOT DETECTED (NEGATIVE) N.gonorrhoeae DNA Probe NOT DETECTED (NEGATIVE) T. vaginalis (PCR) NOT DETECTED (NEGATIVE) Bact vaginosis (PCR) NEGATIVE (NEGATIVE) ABO Group Rh Factor Antibody Screen (NEGATIVE) 07/17/25 07/17/25 07/17/25 Range/Units 13:55 13:51 13:51 WBC 13.5 H (3.98-10.04) x10^3/uL RBC 4.70 (3.93-5.22) x10^6/uL Hgb 13.7 (11.2-15.7) g/dL Hct 42.1 (34.1-44.9) % MCV 89.6 (79.4-94.8) fL MCH 29.1 (25.6-32.2) pg MCHC 32.5 (32.2-35.5) g/dL RDW 13.2 (11.7-14.4) % Plt Count 425 H (182-369) x10^3/uL MPV 10.3 (9.4-12.3) fL Gran % 74.1 H (34.0-71.1) % Immature Gran % (Auto) 0.4 (0.001-0.429) % Nucleat RBC Rel Count 0.0 (0.00-0.2) % Eos # (Auto) 0.20 (0.04-0.36) x10^3/uL Immature Gran # (Auto) 0.05 H (0.001-0.031) x10^3u/L Absolute Lymphs (auto) 2.44 (1.18-3.74) x10^3/uL Absolute Monos (auto) 0.73 (0.24-0.86) x10^3/uL Absolute Nucleated RBC 0.00 (0.00-0.012) x10^3u/L Lymphocytes % 18.0 L (19.3-51.7) % Monocytes % 5.4 (4.7-12.5) % Eosinophils % 1.5 (0.7-5.8) % Basophils % 0.6 (0.1-1.2) % Absolute Granulocytes 10.03 H (1.56-6.13) x10^3/uL Basophils # 0.08 (0.01-0.08) x10^3/uL Sodium 133 L (135-145) mmol/L Potassium 4.4 (3.5-5.1) mmol/L Chloride 104 (98-107) mmol/L Carbon Dioxide 18 L (22-30) mmol/L Anion Gap 14.9 (5-15) MEQ/L BUN 12 (7-17) mg/dL Creatinine 0.65 (0.52-1.04) mg/dL Estimated GFR 121.4 ML/MIN Glucose 144 H (74-106) mg/dL Calcium 9.1 (8.4-10.2) mg/dL Total Bilirubin 0.30 (0.2-1.3) mg/dL AST 27 (14-36) U/L ALT 22 (0-35) U/L Alkaline Phosphatase 99 (38-126) U/L Serum Total Protein 7.7 (6.3-8.2) g/dL Albumin 4.4 (3.5-5.0) g/dL Beta HCG, Quant mIU/ml Urine Color (Yellow) Urine Appearance (Clear) Urine pH (4.6-8.0) Ur Specific Orient (1.005-1.030) Urine Protein (Negative) Urine Glucose (UA) (Negative) mg/dL Urine Ketones (Negative) Urine Blood (Negative) Urine Nitrite (Negative) Urine Bilirubin (Negative) Urine Urobilinogen (0.2) mg/dL Ur Leukocyte Esterase (Negative) U Hyaline Cast (Auto) (0-2) /LPF Urine Microscopic RBC (0-5) /HPF Urine Microscopic WBC (0-5) /HPF Ur Epithelial Cells (None Seen) /HPF Urine Bacteria (None Seen) /HPF Urine Culture Reflexed (NO) Vaginal Padmini Group (NEGATIVE) Padmini species (NEGATIVE) Chlamydia DNA Probe (NEGATIVE) N.gonorrhoeae DNA Probe (NEGATIVE) T. vaginalis (PCR) (NEGATIVE) Bact vaginosis (PCR) (NEGATIVE) ABO Group O Rh Factor POSITIVE Antibody Screen NEGATIVE (NEGATIVE) 07/17/25 Range/Units 13:36 WBC (3.98-10.04) x10^3/uL RBC (3.93-5.22) x10^6/uL Hgb (11.2-15.7) g/dL Hct (34.1-44.9) % MCV (79.4-94.8) fL MCH (25.6-32.2) pg MCHC (32.2-35.5) g/dL RDW (11.7-14.4) % Plt Count (182-369) x10^3/uL MPV (9.4-12.3) fL Gran % (34.0-71.1) % Immature Gran % (Auto) (0.001-0.429) % Nucleat RBC Rel Count (0.00-0.2) % Eos # (Auto) (0.04-0.36) x10^3/uL Immature Gran # (Auto) (0.001-0.031) x10^3u/L Absolute Lymphs (auto) (1.18-3.74) x10^3/uL Absolute Monos (auto) (0.24-0.86) x10^3/uL Absolute Nucleated RBC (0.00-0.012) x10^3u/L Lymphocytes % (19.3-51.7) % Monocytes % (4.7-12.5) % Eosinophils % (0.7-5.8) % Basophils % (0.1-1.2) % Absolute Granulocytes (1.56-6.13) x10^3/uL Basophils # (0.01-0.08) x10^3/uL Sodium (135-145) mmol/L Potassium (3.5-5.1) mmol/L Chloride (98-107) mmol/L Carbon Dioxide (22-30) mmol/L Anion Gap (5-15) MEQ/L BUN (7-17) mg/dL Creatinine (0.52-1.04) mg/dL Estimated GFR ML/MIN Glucose (74-106) mg/dL Calcium (8.4-10.2) mg/dL Total Bilirubin (0.2-1.3) mg/dL AST (14-36) U/L ALT (0-35) U/L Alkaline Phosphatase (38-126) U/L Serum Total Protein (6.3-8.2) g/dL Albumin (3.5-5.0) g/dL Beta HCG, Quant mIU/ml Urine Color Yellow (Yellow) Urine Appearance Clear (Clear) Urine pH 5.5 (4.6-8.0) Ur Specific Orient 1.015 (1.005-1.030) Urine Protein Negative (Negative) Urine Glucose (UA) Negative (Negative) mg/dL Urine Ketones Negative (Negative) Urine Blood Negative (Negative) Urine Nitrite Negative (Negative) Urine Bilirubin Negative (Negative) Urine Urobilinogen 0.2 (0.2) mg/dL Ur Leukocyte Esterase Negative (Negative) U Hyaline Cast (Auto) NONE SEEN (0-2) /LPF Urine Microscopic RBC 0-2 (0-5) /HPF Urine Microscopic WBC 0-2 (0-5) /HPF Ur Epithelial Cells None Seen (None Seen) /HPF Urine Bacteria None Seen (None Seen) /HPF Urine Culture Reflexed NO (NO) Vaginal Padmini Group (NEGATIVE) Padmini species (NEGATIVE) Chlamydia DNA Probe (NEGATIVE) N.gonorrhoeae DNA Probe (NEGATIVE) T. vaginalis (PCR) (NEGATIVE) Bact vaginosis (PCR) (NEGATIVE) ABO Group Rh Factor Antibody Screen (NEGATIVE) - Progress Progress: improved Progress Note: Patient is a 29-year-old female history of a D&C currently 6 weeks 3 days presents to our ED for evaluation of vaginal spotting. Patient states she observed pink-tinged vaginal bleeding when she wiped. Patient states she awoke this morning with bright red blood. The bleeding was small in volume. She did not soak through a pad. Vaginal bleeding associated with some low intensity intermittent pelvic cramping. Physical exam including pelvic exam nonremarkable. Patient is Rh+. UA negative for UTI. Pelvic ultrasound shows a 6-week 3-day-old IUP. No subchorionic hemorrhage. Vaginal panel negative. GC chlamydia negative. History obtained from patient and significant other at bedside. Differential diagnosis includes hormone related vaginal bleeding of , miscarriage, trauma, vaginitis Case discussed with patient's OB physician Dr. Chatman at 444pm Case discussed with patient's TUBE BENDING MACHINE OPERATOR physician Dr. Chatman who was informed of patient's complaint, details regarding our workup and findings. He will see patient on an outpatient basis. Complexity of problems addressed is moderate acute complicated. No critical care time. Complexity of data reviewed and analyzed is extensive. Test ordered chest reviewed results analyzed and correlated clinically with history and physical exam. Management and workup discussed with patient's TUBE BENDING MACHINE OPERATOR physician Dr. Chatman at 4:44 PM. Risk of complication and or risk of morbidity/mortality of patient management is low. Vital stable. Time spent to discharge patient is approximately 10 minutes. Plan of care established for shared decision making. No social determinants of health present to impede follow-up. Portions of this note were created with voice recognition technology. There may be grammatical, spelling, punctuation or sound alike errors 07/17/25 16:40 Counseled pt/family regarding: lab results, diagnosis, need for follow-up, rad results - Departure Departure Disposition: Home Clinical Impression: Vaginal bleeding Condition: Stable Critical Care Time: No Referrals: DOCTOR,NO FAMILY [Primary Care Provider, UNKNOWN] - Follow up/PCP as directed BINA CHATMAN DO [ACTIVE STAFF, OBSTETRICS-GYNECOLOGY] - Follow up/PCP as directed Additional Instructions: Discharge/Care Plan LIBRADO FINCH was seen on 07/17/25 in the Emergency Room. The patient was counseled regarding Diagnosis,Lab results, Imaging studies, need for follow up and when to return to the Emergency Room. Prescriptions given: Discharge Note I have spoken with the patient and/or caregivers. I have explained the patient's condition, diagnosis and treatment plan based on the information available to me at this time. I have answered the patient's and/or caregiver's questions and addressed any concerns. The patient and/or caregivers have as good understanding of the patient's diagnosis, condition and treatment plan as can be expected at this point. The vital signs have been stable. The patient's condition is stable and appropriate for discharge from the emergency department. The patient will pursue further outpatient evaluation with the primary care physician or other designated or consulting physician as outlined in the discharge instructions. The patient and/or caregivers are agreeable to this plan of care and follow-up instructions have been explained in detail. The patient and/or caregivers have received these instruction. The patient/and or caregivers are aware that any significant change in condition or worsening of symptoms should prompt an immediate return to this or the closest emergency department or call 911.
--- NOTE | 2025-07-17 14:27 | XRAY ---
Indication: 6 weeks . Bleeding and cramping. Two-dimensional transvaginal early OB ultrasound performed. Comparison: July 14, 2025 Again single intrauterine gestational sac with pole measuring 0.51 cm corresponding to 6 weeks 2 days. heart rate 130 bpm. No abnormal subchorionic fluid. Left and right ovaries are sonographically unremarkable. No suspicious adnexal mass or free fluid. Impression: Again single viable intrauterine measuring 6 weeks 2 days. Normal progression of . No new/acute findings.
[2025-07-17 14:32] VITALS: RESP 153
[2025-07-17 14:48] LABS: Glucose, Urine Negative (Negative); Protein,Urine Dip Negative (Negative); RBC 0-2 /HPF (0-5); WBC 0-2 /HPF (0-5)
[2025-07-17 14:51] LABS: ABO TYPING O; RH TYPING POSITIVE
[2025-07-17 15:37] LABS: Candida Group NOT DETECTED (NEGATIVE); Candida glab/krus NOT DETECTED (NEGATIVE)
[2025-07-17 16:08] LABS: CHLAMYDIA DNA NOT DETECTED (NEGATIVE)
[2025-07-17 16:39] VITALS: O2SAT 99
[2025-07-17 16:46] VITALS: BP 122/81; PULSE 87
== END 2025-07-17 16:47 | disposition home or self-care (01) ==
LOC: ED 13:17
DX: O20.9 Hemorrhage in early pregnancy, unspecified (principal); Z3A.01 Less than 8 weeks gestation of pregnancy